=== PATIENT | female | born 1995 | race Caucasian/White ===

== ENCOUNTER 2016-12-24 12:31 | Emergency (ER) | payer BC ==
[2016-12-24 12:42] VITALS: BP 134/92
--- NOTE | 2016-12-24 14:04 | UC ---
FLU HPI - HPI Summary HPI Summary: ON SATURDAY HAD STOMACH UPSET AND DIARRHEA, FELT BETTER SATURDAY AND PART OF SATURDAY. YESTERDAY HAD FAIRLY SUDDEN ONSET OF COUGH CONGESTION BODY ACHES - History of Current Complaint Chief Complaint: UCRespiratory Stated Complaint: STOMACH CRAMPS,CONGEST Time Seen by Provider: 12/24/16 12:46 Hx Obtained From: Patient, Family/[employer] Hx Last Menstrual Period: 12/06/16 Onset/Duration: Sudden Onset, Lasting Hours Severity Currently: Moderate Severity Initially: Mild Associated Signs & Symptoms: Positive: F/C, Myalgia, Cough, Sore Throat, Nasal Congestion, Diarrhea Related Hx: Possible Flu/Infectious Exposure - Risk Factors Influenza Risk Factors: Negative - Allergy/Home Medications Allergies/Adverse Reactions: Allergies Allergy/AdvReac Type Severity Reaction Status Date / Time No Known Allergies Allergy Verified 12/24/16 12:43 Home Medications: Home Medications Omeprazole [Prilosec] 20 mg PO 12/24/16 [History] PMH/Surg Hx/FS Hx/Imm Hx Previously Healthy: Yes Endocrine History Of: Denies: Diabetes, Thyroid Disease Cardiovascular History Of: Denies: Cardiac Disorders, Hypertension Respiratory History Of: Denies: COPD, Asthma GI/ History Of: Reports: Ulcer - Surgical History Surgical History: Yes Surgery Procedure, Year, and Place: lap ly 2014. tonsilectomy 2012 - Family History Known Family History: Negative: Respiratory Disease - Social History Occupation: Employed Full-time Lives: With Family Alcohol Use: Rare Substance Use Type: None Smoking Status (MU): Never Smoked Tobacco - Immunization History Vaccination Up to Date: Yes Review of Systems Constitutional: Chills, Fatigue Skin: Negative ENT: Sore Throat, Nasal Discharge Respiratory: Cough Cardiovascular: Negative Gastrointestinal: Vomiting - RESOLVED, Diarrhea Genitourinary: Negative Motor: Negative Neurovascular: Negative Musculoskeletal: Negative Neurological: Negative Psychological: Negative All Other Systems Reviewed And Are Negative: Yes Physical Exam Triage Information Reviewed: Yes Appearance: No Pain Distress, Well-Nourished, Ill-Appearing - MILD, Obese Vital Signs: Initial Vital Signs Temp 98.2 F 12/24/16 12:36 Pulse 103 12/24/16 12:36 Resp 20 12/24/16 12:36 BP 134/92 12/24/16 12:36 Pulse Ox 100 12/24/16 12:36 Vital Signs Reviewed: Yes Eye Exam: Normal ENT Exam: Normal ENT: Positive: Normal ENT inspection, Hearing grossly normal, Pharynx normal, TMs normal Dental Exam: Normal Neck exam: Normal Neck: Positive: Supple, Nontender Respiratory Exam: Normal Respiratory: Positive: Chest non-tender, Lungs clear, Normal breath sounds, No respiratory distress Cardiovascular Exam: Normal Cardiovascular: Positive: RRR, No Murmur, Pulses Normal Abdominal Exam: Normal Abdomen Description: Positive: Nontender, No Organomegaly, Soft Musculoskeletal Exam: Normal Musculoskeletal: Positive: Strength Intact, ROM Intact Neurological Exam: Normal Psychological Exam: Normal Psychological: Positive: Normal Response To Family Skin Exam: Normal Flu Course/Dx - Differential Dx/Diagnosis Differential Diagnosis/HQI/PQRI: Influenza, Upper Respiratory Infection Provider Diagnoses: INFLUENZA B Discharge - Discharge Plan Condition: Stable Disposition: HOME Prescriptions: Oseltamivir CAP* [Tamiflu CAP*] 75 mg PO BID #10 cap Patient Education Materials: Influenza (ED) Forms: *Work Release Referrals: Smooth Zelaya NP [Primary Care Provider] - Leander Vee MD [Medical Doctor] -
== END 2016-12-24 13:46 | disposition home or self-care (01) ==
LOC: UCEAST 12:31
DX: J10.1 Influenza due to other identified influenza virus with other respiratory manifestations (principal); R03.0 Elevated blood-pressure reading, without diagnosis of hypertension; Z87.11 Personal history of peptic ulcer disease
CPT/HCPCS: 87502; 99212; G0463

== ENCOUNTER 2018-07-02 07:54 | Emergency (ER) | payer BC, OTHER ==
[2018-07-02 08:12] VITALS: BP 141/87
--- NOTE | 2018-07-02 08:26 | UC ---
UC General HPI - HPI Summary HPI Summary: This pt is a 22 y/o female presenting to [facility] c/o sore throat, cough, nasal congestion for the past 2 weeks. Pt additionally reports sinus pain, nasal discharge green in color, post nasal drip, body aches, and occasional fever. Denies nausea, vomiting, abd pain. She rates her sore throat 2/10 in severity. Denies any PMHx. - History of Current Complaint Chief Complaint: UCRespiratory Stated Complaint: COUGH HEADACHE Time Seen by Provider: 07/02/18 08:02 Hx Obtained From: Patient Hx Last Menstrual Period: bc, irrg, rare Onset/Duration: Lasting Weeks - 2, Still Present Timing: Constant Current Severity: Mild Pain Intensity: 2 Pain Location at: throat Character: sore Aggravating: nothing Alleviating: nothing Associated Signs & Symptoms: Positive: Cough, Fever, Other - POS: sinus pain, nasal congestion, nasal discharge, post nasal drip, body aches. Negative: Abdominal Pain, Diarrhea, Nausea, SOB, Vomiting - Allergy/Home Medications Allergies/Adverse Reactions: Allergies Allergy/AdvReac Type Severity Reaction Status Date / Time No Known Allergies Allergy Verified 07/02/18 08:05 PMH/Surg Hx/FS Hx/Imm Hx Other Endocrine History: DENIES: diabetes Other Cardiovascular History: DENIES: HTN - Surgical History Surgical History: Yes Surgery Procedure, Year, and Place: lap ly 2015. tonsilectomy 2012 - Family History Known Family History: Negative: Respiratory Disease - Social History Alcohol Use: Rare Substance Use Type: Marijuana Substance Use Comment - Amount & Last Used: rare Smoking Status (MU): Never Smoked Tobacco - Immunization History Vaccination Up to Date: Yes Review of Systems Constitutional: Fever Skin: Negative Eyes: Negative ENT: Sore Throat, Nasal Discharge, Sinus Congestion, Sinus Pain/Tenderness, Other - POS: post nasal drip Respiratory: Cough Cardiovascular: Negative Gastrointestinal: Negative Genitourinary: Negative Motor: Negative Neurovascular: Negative Musculoskeletal: Myalgia Neurological: Negative Psychological: Negative Is Patient Immunocompromised?: No All Other Systems Reviewed And Are Negative: Yes Physical Exam - Summary Physical Exam Summary: VITAL SIGNS: Reviewed. GENERAL: Patient is a well-developed and nourished female who is lying comfortable in the stretcher. Patient is not in any acute respiratory distress. HEAD AND FACE: Normocephalic. Positive sinus tenderness on maxillary sinus. Greenish discharge from both nostrils. Positive nasal congestion. EYES: PERRLA, EOMI x 2. EARS: Hearing grossly intact. MOUTH: Oropharynx within normal limits. NECK: Supple, trachea is midline, no adenopathy, no JVD, no carotid bruit. CHEST: Symmetric, no tenderness at palpation LUNGS: Clear to auscultation bilaterally. No wheezing or crackles. CVS: Regular rate and rhythm, S1 and S2 present, no murmurs or gallops appreciated. ABDOMEN: Soft, non-tender. Bowel sounds are normal. No abdominal abnormal pulsations. EXTREMITIES: Full ROM in all major joints, no edema, no cyanosis or clubbing. NEURO: Alert and oriented x 3. No acute neurological deficits. Speech is normal and follows commands. SKIN: Dry and warm Triage Information Reviewed: Yes Vital Signs: Initial Vital Signs Temp 98 F 07/02/18 08:06 Pulse 86 07/02/18 08:06 Resp 18 07/02/18 08:06 BP 141/87 07/02/18 08:06 Pulse Ox 98 07/02/18 08:06 Vital Signs Reviewed: Yes Course/Dx - Course Course Of Treatment: Pt is a 22 y/o female presenting to [facility] c/o sore throat, cough, nasal congestion for the past 2 weeks. Pt additionally reports sinus pain , nasal discharge green in color, post nasal drip, body aches, and occasional fever. Denies nausea, vomiting, abd pain. She rates her sore throat 2/10 in severity. Rapid strep is negative. Influenza A and B is negative. It seems that the patient has an acute sinusitis therefore the patient was given amoxicillin and discharged home with follow-up from PCP. Patient is hemodynamically stable alert and oriented 3. The patient was found to have increased blood pressure in UC. The patient will follow up with PCP for better control of BP. - Differential Dx - Multi-Symptom Provider Diagnoses: Acute sinusitis Discharge - Sign-Out/Discharge Documenting (check all that apply): Patient Departure - Discharge All imaging exams completed and their final reports reviewed: No Studies - Discharge Plan Condition: Stable Disposition: HOME Prescriptions: Amoxicillin PO (*) [Amoxicillin 875 MG (*)] 875 mg PO BID #20 tab Fluticasone NASAL SPRAY 50MCG* [Flonase NASAL SPRAY 50MCG*] 2 spray BOTH NARES DAILY #1 btl Patient Education Materials: Sinusitis (ED) Referrals: Leander Vee MD [Primary Care Provider] - Additional Instructions: Take medications as instructed and adhere to plan Take Acetaminophen or ibuprofen for pain or fever Increase your fluid intake Return to the or go to the emergency department if symptoms worsen Follow-up with primary care physician in next 2-3 days - Billing Disposition and Condition Condition: STABLE Disposition: Home - Attestation Statements Document Initiated by Scribe: Yes Documenting Scribe: Sonia Ridley Provider For Whom Romulo is Documenting (Include Credential): Jose Cantu MD Scribe Attestation: Sonia Joy, scribed for Jose Cantu MD on 07/02/18 at 0934. Scribe Documentation Reviewed: Yes Provider Attestation: The documentation as recorded by the scribeSonia accurately reflects the service I personally performed and the decisions made by me, Jose Cantu MD
== END 2018-07-02 08:48 | disposition home or self-care (01) ==
LOC: UCEAST 07:54
DX: J01.90 Acute sinusitis, unspecified (principal)
CPT/HCPCS: 87651; 99212; G0463

== ENCOUNTER → 2018-09-11 22:57 | Emergency (ER) | payer OTHER ==
[2018-09-11 23:02] VITALS: BP 131/91
== END | disposition left against medical advice (07) ==
LOC: ED 22:57
DX: R10.31 Right lower quadrant pain (principal); Z53.21 Procedure and treatment not carried out due to patient leaving prior to being seen by health care provider

== ENCOUNTER 2018-09-12 09:42 | Emergency (ER) | payer OTHER ==
[2018-09-12 09:52] VITALS: BP 147/99
--- NOTE | 2018-09-12 10:42 | UC ---
UC General HPI - HPI Summary HPI Summary: pleasant 23 yo female c/o progressive RLQ pain since Sun (today is Saturday). No fever / chills. Appetite fair. + nausea, no vomit. Uncomfortable pressure with bowel movement but not painful. No melena / brbr. No urinary sx - no freq , urg, blood / discoloration, dysuria. No rash. No sob / cp / palpitations. PMH / PSH - gallbladder sx, has control device. No other sign ros although has had a h/a this week. Went to the ED last evening for RLQ pain, but lwbs d/t wait time. - History of Current Complaint Chief Complaint: UCAbdominalPain Stated Complaint: R ABD PAIN Time Seen by Provider: 09/12/18 10:31 Hx Obtained From: Patient Hx Last Menstrual Period: 08/28/18 Pain Intensity: 8 - Allergy/Home Medications Allergies/Adverse Reactions: Allergies Allergy/AdvReac Type Severity Reaction Status Date / Time almond Allergy GI Upset Verified 09/12/18 09:53 carrot Allergy GI Upset Verified 09/12/18 09:53 hazelnut Allergy GI Upset Verified 09/12/18 09:53 soy Allergy GI Upset Verified 09/12/18 09:53 Home Medications: Home Medications NK [No Home Medications Reported] 09/12/18 [History Confirmed 09/12/18] PMH/Surg Hx/FS Hx/Imm Hx Previously Healthy: Yes - Surgical History Surgical History: Yes Surgery Procedure, Year, and Place: lap ly 2014. tonsilectomy 2012 - Family History Known Family History: Negative: Respiratory Disease - Social History Alcohol Use: Rare Substance Use Type: Marijuana Substance Use Comment - Amount & Last Used: rare Smoking Status (MU): Never Smoked Tobacco - Immunization History Vaccination Up to Date: Yes Review of Systems All Other Systems Reviewed And Are Negative: Yes Constitutional: Positive: Other - see hpi Skin: Positive: Negative Eyes: Positive: Negative ENT: Positive: Negative Respiratory: Positive: Negative Cardiovascular: Positive: Negative Gastrointestinal: Positive: Other - see hpi Motor: Positive: Negative Neurovascular: Positive: Negative Musculoskeletal: Positive: Negative Neurological: Positive: Negative - see hpi Psychological: Positive: Negative Is Patient Immunocompromised?: No Physical Exam Triage Information Reviewed: Yes Appearance: Well-Nourished - sitting up, conversing easily Looks uncomfortable, jen with examination, but NAD Vital Signs: Initial Vital Signs Temp 98 F 09/12/18 09:50 Pulse 81 09/12/18 09:50 Resp 18 09/12/18 09:50 BP 147/99 09/12/18 09:50 Pulse Ox 99 09/12/18 09:50 Vital Signs Reviewed: Yes Eye Exam: Normal ENT Exam: Normal Neck exam: Normal Neck: Positive: Supple Respiratory Exam: Normal Respiratory: Positive: Chest non-tender, Lungs clear, Normal breath sounds, No respiratory distress, No accessory muscle use Cardiovascular Exam: Normal Cardiovascular: Positive: RRR, No Murmur, Pulses Normal, Brisk Capillary Refill Abdominal Exam: Other - Tender R flank, Tender RLQ no rebound / guarding +BS present Pelvic Exam: Positive: Other - normal female genitalia. No external sores or lesions. Vaginal vault with yellow-white mucoid discharge. No CMT appreciated. Tender R pelvis and RLQ but without skye adnexal mass. Note, exam limited d/t habitus and exam table limitation. Musculoskeletal Exam: Normal - gait steady, able to move x 4 ext's Neurological Exam: Normal - grossly nonfocal Psychological Exam: Normal - conversing easily and appropriately. Skin Exam: Normal - no visible or reported rash. Nondiaphoretic. Course/Dx - Course Course Of Treatment: Reviewed urine dip, d/w pt. Will send urine culture. UCG neg. D/w pt recommendation to go to ED for further evaluation / tx. She would like pelvic examination however, to be done here. (see pelvic exam in pe notes) . Bp 149/99. Possibly pain related. But recommend recheck pcp within the next 2 weeks. Questions posed answered to the best of my ability. - Diagnoses Provider Diagnosis: Acute right lower quadrant pain Discharge - Sign-Out/Discharge Documenting (check all that apply): Patient Departure All imaging exams completed and their final reports reviewed: No Studies - Discharge Plan Condition: Stable Disposition: HOME Patient Education Materials: Acute Abdominal Pain (ED) Referrals: Leander Vee MD [Primary Care Provider] - Additional Instructions: Please go to the Emergency Department. Call 911 if problems en route. - Billing Disposition and Condition Condition: STABLE Disposition: Home
--- NOTE | 2018-09-13 15:16 | UC ---
- Progress Note Progress Note: 09/13/2018 Vaginal swabs negative for Gardnerella and Sissy Urine culture: no growth Pt was sent to the ER for further evaluation and treatment yesterday No change Stephany Michel PA-C Course/Dx - Diagnoses Provider Diagnoses: Acute right lower quadrant pain Discharge - Sign-Out/Discharge Documenting (check all that apply): Patient Departure - D/C home All imaging exams completed and their final reports reviewed: No Studies - Discharge Plan Condition: Stable Disposition: HOME Patient Education Materials: Acute Abdominal Pain (ED) Referrals: Leander eVe MD [Primary Care Provider] - Additional Instructions: Please go to the Emergency Department. Call 911 if problems en route. - Billing Disposition and Condition Condition: STABLE Disposition: Home
== END 2018-09-12 11:30 | disposition home or self-care (01) ==
LOC: UCEAST 09:42
DX: R10.31 Right lower quadrant pain (principal); Z32.02 Encounter for pregnancy test, result negative; Z90.49 Acquired absence of other specified parts of digestive tract
CPT/HCPCS: 81003; 84702; 87086; 87480; 87491; 87510; 87591; 99212; G0463

== ENCOUNTER → 2018-09-12 12:25 | Emergency (ER) | payer OTHER ==
--- NOTE | 2018-09-12 12:49 | ED ---
Abdominal Pain/Female - HPI Summary HPI Summary: The pt is 23 y/o female presenting to [facility] c/o RLQ pain for 1 week. The constant pain rated 7/10 in severity is described as a pressure. She notes decreased appetite and nausea but denies vomiting, dysuria, and constipation. She was seen yesterday night at [facility] for the same sx and discharged with a final dx of acute abd pain. She also went to Urgent care today morning and sent to [facility] for imaging. A test performed at Urgent Care returned negative. Home Medications Medication Instructions Recorded Confirmed Type NK [No Home Medications Reported] 09/12/18 09/12/18 History - History of Current Complaint Chief Complaint: EDAbdPain Stated Complaint: LOWER RIGHT ABD PAIN Time Seen by Provider: 09/12/18 12:37 Hx Obtained From: Patient Hx Last Menstrual Period: 08/28/18 Onset/Duration: Sudden Onset, Lasting Weeks - 1 week, Still Present Timing: Constant Severity Initially: Moderate Severity Currently: Moderate Pain Intensity: 7 Pain Scale Used: 0-10 Numeric Location: Discrete At: RLQ Radiates: No Aggravating Factor(s): Nothing Alleviating Factor(s): Nothing Associated Signs and Symptoms: Positive: Decreased Appetite, Nausea. Negative: Vomiting Allergies/Adverse Reactions: Allergies Allergy/AdvReac Type Severity Reaction Status Date / Time almond Allergy GI Upset Verified 09/12/18 09:53 carrot Allergy GI Upset Verified 09/12/18 09:53 hazelnut Allergy GI Upset Verified 09/12/18 09:53 soy Allergy GI Upset Verified 09/12/18 09:53 PMH/Surg Hx/FS Hx/Imm Hx Previously Healthy: No Endocrine/Hematology History: Denies: Hx Diabetes, Hx Thyroid Disease Cardiovascular History: Denies: Hx Hypertension Respiratory History: Reports: Hx Sleep Apnea - ? POSSIBLE- RELATED TO ENLARGED TONSILS Denies: Hx Asthma, Hx Chronic Obstructive Pulmonary Disease (COPD) GI History: Reports: Hx Ulcer Musculoskeletal History: Reports: Other Musculoskeletal History - RIGHT INTERCOSTAL MUSCLE PULLED- HAVING PT FOR Sensory History: Reports: Hx Contacts or Glasses - WILL WEAR GLASSES DAY OF SURGERY Denies: Hx Hearing Aid Opthamlomology History: Reports: Hx Contacts or Glasses - WILL WEAR GLASSES DAY OF SURGERY - Cancer History Cancer Type, Location and Year: None reported - Surgical History Surgery Procedure, Year, and Place: rosalia modi 2014. tonsilectomy 2013 Infectious Disease History: No Infectious Disease History: Denies: Hx Hepatitis, Hx Human Immunodeficiency Virus (HIV), Traveled Outside the [place] in Last 30 Days - Family History Known Family History: Positive: Unknown Family History: Pt is adopted. - Social History Occupation: Employed Full-time Lives: With Family Alcohol Use: Rare Substance Use Type: Reports: Marijuana Substance Use Comment - Amount & Last Used: rare Smoking Status (MU): Never Smoked Tobacco Review of Systems Gastrointestinal: Negative - Constipation , Other - Positive: Decreased appetite Positive: Abdominal Pain, Nausea. Negative: Vomiting Negative: dysuria All Other Systems Reviewed And Are Negative: Yes Physical Exam - Summary Physical Exam Summary: Appearance: The patient is well-nourished in no acute distress and in no acute pain. The patient is obese. Skin: The skin is warm and dry and skin color reflects adequate perfusion. HEENT: The head is normocephalic and atraumatic. The pupils are equal and reactive. The conjunctivae are clear and without drainage. Nares are patent and without drainage. Mouth reveals moist mucous membranes and the throat is without erythema and exudate. The external ears are intact. The ear canals are patent and without drainage. The tympanic membranes are intact. Neck: The neck is supple with full range of motion and non-tender. There are no carotid bruits. There is no neck vein distension. Respiratory: Chest is non-tender. Lungs are clear to auscultation and breath sounds are symmetrical and equal. Cardiovascular: Heart is regular rate and rhythm. There is no murmur or rub auscultated. There is no peripheral edema and pulses are symmetrical and equal. Abdomen: The abdomen is soft and mildly tender in the RLQ and RUQ . There are normal bowel sounds heard in all four quadrants and there is no organomegaly palpated. Musculoskeletal: There is no back tenderness noted. Extremities are non-tender with full range of motion. There is good capillary refill. There is no peripheral edema or calf tenderness elicited. Neurological: Patient is alert and oriented to person, place and time. The patient has symmetrical motor strength in all four extremities. Cranial nerves are grossly intact. Deep tendon reflexes are symmetrical and equal in all four extremities. Psychiatric: The patient has an appropriate affect and does not exhibit any anxiety or depression. Triage Information Reviewed: Yes Vital Signs On Initial Exam: Initial Vitals Temp Pulse Resp BP Pulse Ox 97.2 F 86 18 148/96 99 09/12/18 12:29 09/12/18 12:29 09/12/18 12:29 09/12/18 12:29 09/12/18 12:29 Vital Signs Reviewed: Yes Diagnostics - Vital Signs Vital Signs Temp Pulse Resp BP Pulse Ox 09/12/18 12:29 97.2 F 86 18 148/96 99 - Laboratory Result Diagrams: 09/12/18 12:57 09/12/18 12:57 Lab Statement: Any lab studies that have been ordered have been reviewed, and results considered in the medical decision making process. - CT Abd/Pel CT CT Interpretation Completed By: Radiologist - IMPRESSION: 1. NORMAL APPENDIX. 2. NO HYDRONEPHROSIS OR NEPHROLITHIASIS. 3. FATTY INFILTRATION OF THE LIVER. 4. NO ACUTE NONCONTRAST CT PATHOLOGY OF THE VISUALIZED ABDOMEN OR PELVIS. The ED physician reviewed this radiology report. - Ultrasound No standard instances Ultrasound Interpretation Completed By: Radiologist - TRANSVAGINAL PELVIC US IMPRESSION: Unremarkable pelvic ultrasound. The ED physician reviewed this radiology report. Re-Evaluation - Re-Evaluation First Eval Re-Evaluation Time: 15:22 Change: Improved - I discussed the imaging results and dispo plan with the pt. Abdominal Pain Fem Course/Dx - Course Course Of Treatment: Ms. Bae presented with about a week of right lower quadrant abdominal pain which she describes as dull. She's not had much appetite and been a little bit nauseated at times. She came to the emergency department last evening but left without being seen visit was busy. [facility] and they sent her over here. She is mildly tender in the right lower quadrant but nontoxic in appearance with stable vital signs. Labs showed a very slight leukocytosis in the 11 range. Pelvic ultrasound showed no pathology therefore a CT was obtained and was negative for appendicitis. I recommended close follow-up and reassured her that this did not seem to be a dangerous process at this time. - Diagnoses Provider Diagnoses: Abdominal pain Discharge - Sign-Out/Discharge Documenting (check all that apply): Patient Departure - Discharge Plan Condition: Stable Disposition: HOME Patient Education Materials: Acute Abdominal Pain (ED) Referrals: Leander Vee MD [Primary Care Provider] - Additional Instructions: Keep your Saturday appointment at [place] and follow up with Dr. Vee. Return to ED for any new or worsening symptoms - Billing Disposition and Condition Condition: STABLE Disposition: Home - Attestation Statements Document Initiated by Romulo: Yes Documenting Scribe: Nivia Demarco Provider For Whom Romulo is Documenting (Include Credential): Dr. James Loja MD Scribe Attestation: Nivia Joy scribed for Dr. James Loja MD on 09/12/18 at 1645. Scribe Documentation Reviewed: Yes Provider Attestation: The documentation as recorded by the Nivia warren accurately reflects the service I personally performed and the decisions made by me, Dr. James Loja MD Status of Scribe Document: Viewed
[2018-09-12 13:10] LABS: ABS Basophils 0.1 10^3/ul (0-0.2); ABS Eosinophils 0.2 10^3/ul (0-0.6); ABS Lymphocytes 2.5 10^3/ul (1.0-4.8); ABS Neutrophils 7.5 10^3/ul (1.5-7.7); ABS Nucleated RBC 0 10^3/ul; Eosinophil % 1.5 %; Hematocrit 43 % (35-47); Hemoglobin 14.4 g/dl (12.0-16.0); Lymphocyte % 22.1 %; Mean Corpuscular HGB Conc 34 g/dl (31-36); Mean Corpuscular Hemoglobin 31 pg (27-31); Mean Corpuscular Volume 92 fL (80-97); Mean Platelet Volume 7.3 fL (7.4-10.4); Nucleated Red Blood Cells % 0; Platelet Count 304 10^3/ul (150-450); Red Blood Count 4.66 10^6/ul (4.00-5.40); Red Cell Distribution Width 13 % (10.5-15); White Blood Count 11.2 10^3/ul (3.5-10.8)
[2018-09-12 13:19] LABS: INR 0.89 (0.77-1.02)
[2018-09-12 13:22] LABS: EGFR Non-African American 117.1 (>60)
[2018-09-12 15:44] VITALS: BP 140/90
== END | disposition home or self-care (01) ==
LOC: ED 12:25
DX: R10.31 Right lower quadrant pain (principal); R11.0 Nausea; R63.0 Anorexia
CPT/HCPCS: 36415; 74176; 76830; 80053; 83605; 83690; 83735; 84702; 85025; 85610; 85730; 86140; 99283

== ENCOUNTER 2019-03-25 18:50 | Emergency (ER) | payer OTHER ==
[2019-03-25 19:21] VITALS: BP 138/97
--- NOTE | 2019-03-25 20:15 | UC ---
Abdominal Pain Female HPI - HPI Summary HPI Summary: 23-year-old female comes in with a chief complaint of intermittent pelvic pain and epigastric pain. This been going on and off for several days. She's also had some spotting. Her last menstrual period was February 18, 2019. Typically she has her menses every 28 days and so it's late. She is trying to get so she is wondering if she is now. The pelvic pain when it happens does radiate to the middle of her low back. She denies any concerns of STI denies any abnormal vaginal discharge. She has been slightly constipated also. She tells me she does have a history of stomach ulcers and is not taking any antacid medicines at this time. She has had a cholecystectomy. No fevers or chills no dysuria. No vomiting. - History of Current Complaint Chief Complaint: UCAbdominalPain Stated Complaint: ABDOMINAL AND BACK PAIN Time Seen by Provider: 03/25/19 19:56 Hx Last Menstrual Period: 02/18/19 Pain Intensity: 8 Allergies/Adverse Reactions: Allergies Allergy/AdvReac Type Severity Reaction Status Date / Time almond Allergy GI Upset Verified 03/25/19 19:21 carrot Allergy GI Upset Verified 03/25/19 19:21 hazelnut Allergy GI Upset Verified 03/25/19 19:21 soy Allergy GI Upset Verified 03/25/19 19:21 PMH/Surg Hx/FS Hx/Imm Hx Previously Healthy: Yes - Surgical History Surgical History: Yes Surgery Procedure, Year, and Place: lap ly 2014. tonsilectomy 2012 - Family History Known Family History: Positive: Unknown, Non-Contributory Negative: Respiratory Disease Family History: Pt is adopted. - Social History Alcohol Use: Rare Substance Use Type: Marijuana Substance Use Comment - Amount & Last Used: rare Smoking Status (MU): Never Smoked Tobacco - Immunization History Vaccination Up to Date: Yes Review of Systems All Other Systems Reviewed And Are Negative: Yes Constitutional: Positive: Negative Skin: Positive: Negative Eyes: Positive: Negative ENT: Positive: Negative Respiratory: Positive: Negative Cardiovascular: Positive: Negative Gastrointestinal: Positive: Abdominal Pain Genitourinary: Positive: Negative Motor: Positive: Negative Neurovascular: Positive: Negative Musculoskeletal: Positive: Negative Neurological: Positive: Negative Psychological: Positive: Negative Is Patient Immunocompromised?: No Physical Exam Triage Information Reviewed: Yes Appearance: Well-Appearing, No Pain Distress, Well-Nourished Vital Signs: Initial Vital Signs Temp 97.2 F 03/25/19 19:08 Pulse 94 03/25/19 19:08 Resp 16 03/25/19 19:08 BP 138/97 03/25/19 19:08 Pulse Ox 97 03/25/19 19:08 Vital Signs Reviewed: Yes Eye Exam: Normal Eyes: Positive: Conjunctiva Clear Neck: Positive: Supple Respiratory: Positive: Lungs clear, Normal breath sounds, No respiratory distress Cardiovascular: Positive: RRR Abdomen Description: Positive: Soft, Other: - Minimal tenderness to palpation rlq and llq and epigastrium. No rebound. Bowel Sounds: Positive: Present Musculoskeletal Exam: Normal Musculoskeletal: Positive: Strength Intact, ROM Intact Neurological Exam: Normal Neurological: Positive: Alert, Muscle Tone Normal Psychological Exam: Normal Psychological: Positive: Age Appropriate Behavior Skin Exam: Normal Abd Pain Female Course/Dx - Course Course Of Treatment: On examination the patient has minimal tenderness to palpation in the right lower quadrant left lower quadrant and epigastrium. There is no rebound. Patient's in no acute distress in the clinic. We discussed evaluation of pelvic pain. At this time the patient's main complaint is she wonders if she is . And the clinic we ran a urine which was negative. No dysuria or Sx of a UTI therefore, no ABx at this time. Patient would like blood work done and blood work has been drawn for CBC CMP and serum hCG. We discussed going to the emergency department for further evaluation of pelvic pain patient prefers to not do that at this time. We discussed that if she got worse her condition did not improve she should go the emergency department. - Differential Dx/Diagnosis Provider Diagnosis: Pelvic pain, Epigastric pain, Menstrual period late Discharge - Sign-Out/Discharge Documenting (check all that apply): Patient Departure All imaging exams completed and their final reports reviewed: No Studies - Discharge Plan Condition: Stable Disposition: HOME Patient Education Materials: Pelvic Pain in Women (ED), Epigastric Pain (ED) Referrals: Leander Vee MD [Primary Care Provider] - Additional Instructions: FOLLOW UP WITH YOUR DOCTOR IF NOT COMPLETELY IMPROVED. GO TO THE EMERGENCY DEPARTMENT IF YOUR CONDITION DOES NOT IMPROVE OR WORSENS; PAIN, FEVER, YOU FEEL ILL OR ANY QUESTIONS OR CONCERNS. - Billing Disposition and Condition Condition: STABLE Disposition: Home
[2019-03-26 12:01] LABS: ABS Basophils 0.1 10^3/ul (0-0.2); ABS Eosinophils 0.2 10^3/ul (0-0.6); ABS Monocytes 0.9 10^3/ul (0-0.8); ABS Neutrophils 8.8 10^3/ul (1.5-7.7); Eosinophil % 1.7 %; Hematocrit 42 % (35-47); Lymphocyte % 22.9 %; Mean Corpuscular HGB Conc 34 g/dL (31-36); Mean Corpuscular Hemoglobin 31 pg (27-31); Mean Corpuscular Volume 92 fL (80-97); Mean Platelet Volume 8.3 fL (7.4-10.4); Platelet Count 309 10^3/uL (150-450); Red Blood Count 4.52 10^6 /uL (3.70-4.87); Red Cell Distribution Width 13 % (10-15)
[2019-03-26 12:06] LABS: Albumin 4.4 g/dL (3.2-5.2); Anion Gap 6 mmol/L (2-11); CO2 Carbon Dioxide 27 mmol/L (22-32); Calcium 9.7 mg/dL (8.6-10.3); Chloride 103 mmol/L (101-111); Potassium 4.1 mmol/L (3.5-5.0); Sodium 136 mmol/L (135-145)
[2019-03-26 12:12] LABS: ALT 25 U/L (7-52); AST 18 U/L (13-39); Albumin/Globulin Ratio 1.4 (1-3); Alkaline Phosphatase 61 U/L (34-104); BUN/Creatinine Ratio 25.4 (8-20); Blood Urea Nitrogen 17 mg/dL (6-24); EGFR Non-African American 109.1 (>60); Globulin 3.1 g/dL (2-4); Glucose 88 mg/dL (70-100); Total Protein 7.5 g/dL (6.4-8.9)
[2019-03-26 12:35] LABS: HCG Pregnancy < 0.60 mIU/mL
--- NOTE | 2019-03-26 15:08 | UC ---
- Progress Note Progress Note: mildly elevated white count uncertain of significance follow up PCP Course/Dx - Diagnoses Provider Diagnoses: Pelvic pain, Epigastric pain, Menstrual period late Discharge - Sign-Out/Discharge Documenting (check all that apply): Post-Discharge Follow Up All imaging exams completed and their final reports reviewed: No Studies - Discharge Plan Condition: Stable Disposition: HOME Patient Education Materials: Pelvic Pain in Women (ED), Epigastric Pain (ED) Referrals: Leander Vee MD [Primary Care Provider] - Additional Instructions: FOLLOW UP WITH YOUR DOCTOR IF NOT COMPLETELY IMPROVED. GO TO THE EMERGENCY DEPARTMENT IF YOUR CONDITION DOES NOT IMPROVE OR WORSENS; PAIN, FEVER, YOU FEEL ILL OR ANY QUESTIONS OR CONCERNS. - Billing Disposition and Condition Condition: STABLE Disposition: Home
--- NOTE | 2019-03-27 16:54 | UC ---
- Progress Note Progress Note: urine culture neg final n no changes ljj 03/27/19 Course/Dx - Diagnoses Provider Diagnoses: Pelvic pain, Epigastric pain, Menstrual period late Discharge - Sign-Out/Discharge Documenting (check all that apply): Post-Discharge Follow Up All imaging exams completed and their final reports reviewed: No Studies - Discharge Plan Condition: Stable Disposition: HOME Patient Education Materials: Pelvic Pain in Women (ED), Epigastric Pain (ED) Referrals: Leander Vee MD [Primary Care Provider] - Additional Instructions: FOLLOW UP WITH YOUR DOCTOR IF NOT COMPLETELY IMPROVED. GO TO THE EMERGENCY DEPARTMENT IF YOUR CONDITION DOES NOT IMPROVE OR WORSENS; PAIN, FEVER, YOU FEEL ILL OR ANY QUESTIONS OR CONCERNS. - Billing Disposition and Condition Condition: STABLE Disposition: Home
== END 2019-03-25 20:40 | disposition home or self-care (01) ==
LOC: UCEAST 18:50
DX: R10.2 Pelvic and perineal pain (principal); R10.13 Epigastric pain; N92.5 Other specified irregular menstruation
CPT/HCPCS: 36415; 80053; 81003; 84702; 85025; 87086; 99211; G0463

== ENCOUNTER 2019-07-27 07:52 | Emergency (ER) | payer OTHER ==
[2019-07-27 08:01] VITALS: BP 140/89
--- NOTE | 2019-07-27 08:09 | UC ---
Shoulder Pain HPI - HPI Summary HPI Summary: Is a 23-year-old female presenting with right shoulder pain since last night. States she played in a softball tournament yesterday when she noticed her shoulder began bother her. She noticed this pain one week prior and took the week off thinking it would go away. She states after her adrenaline wore off yesterday she started feeling increasing sharp pain that shoots down her arm. Nothing makes the pain better. States any kind of movement makes it worse. Patient states she is concerned for a rotator cuff tear. - History of Current Complaint Chief Complaint: UCUpperExtremity Stated Complaint: SHOULDER INJURY Hx Obtained From: Patient Hx Last Menstrual Period: 1-2 weeks ago Pain Intensity: 9 - Allergies/Home Medications Allergies/Adverse Reactions: Allergies Allergy/AdvReac Type Severity Reaction Status Date / Time almond Allergy GI Upset Verified 07/27/19 08:01 carrot Allergy GI Upset Verified 07/27/19 08:01 hazelnut Allergy GI Upset Verified 07/27/19 08:01 soy Allergy GI Upset Verified 07/27/19 08:01 PMH/Surg Hx/FS Hx/Imm Hx Previously Healthy: Yes - Surgical History Surgical History: Yes Surgery Procedure, Year, and Place: lap ly 2015. tonsilectomy 2013 - Family History Known Family History: Positive: Unknown, Non-Contributory Negative: Respiratory Disease Family History: Pt is adopted. - Social History Alcohol Use: Rare Substance Use Type: None Substance Use Comment - Amount & Last Used: rare Smoking Status (MU): Never Smoked Tobacco - Immunization History Vaccination Up to Date: Yes Review of Systems All Other Systems Reviewed And Are Negative: No Constitutional: Positive: Negative Skin: Negative: Bruising Respiratory: Positive: Negative Cardiovascular: Positive: Negative Gastrointestinal: Positive: Negative Neurovascular: Negative: Decreased Sensation Musculoskeletal: Positive: Arthralgia. Negative: Edema Neurological: Negative: Weakness, Paresthesia, Numbness Physical Exam Triage Information Reviewed: Yes Appearance: Well-Appearing, No Pain Distress, Well-Nourished Vital Signs: Initial Vital Signs Temp 97.4 F 07/27/19 07:55 Pulse 86 07/27/19 07:55 Resp 16 07/27/19 07:55 BP 140/89 07/27/19 07:55 Pulse Ox 98 07/27/19 07:55 Vital Signs Reviewed: Yes Eyes: Positive: Conjunctiva Clear ENT: Positive: Hearing grossly normal Neck: Positive: Supple Respiratory Exam: Normal Respiratory: Positive: Lungs clear, Normal breath sounds, No respiratory distress Cardiovascular Exam: Normal Cardiovascular: Positive: RRR, Pulses Normal, Brisk Capillary Refill Musculoskeletal: Positive: Strength Intact, No Edema, ROM Limited @ - internal and external rotation of right shoulder. Neurological Exam: Other - Sensation grossly intact Neurological: Positive: Alert Psychological: Positive: Age Appropriate Behavior Skin Exam: Normal Diagnostics - Radiology right shoulder Summary of Radiographic Findings: IMPRESSION: NO ACUTE OSSEOUS INJURY. IF SYMPTOMS PERSIST, RECOMMEND REPEAT IMAGING. Shoulder Course/Dx - Course Course Of Treatment: Discussed negative x-ray results with the patient. Directed her to follow-up with orthopedics if her pain persists or she is concerned for rotator cuff injury. Instructed her to continue symptomatic treatment including use of sling and shoulder exercises. Patient voiced understanding and agreed to the treatment plan. - Differential Dx/Diagnosis Provider Diagnosis: Shoulder pain, right Discharge ED - Sign-Out/Discharge Documenting (check all that apply): Patient Departure All imaging exams completed and their final reports reviewed: Yes - Discharge Plan Condition: Stable Disposition: HOME Patient Education Materials: Shoulder Separation Exercises (GEN), Shoulder Pain (ED) Forms: *Work Release Referrals: Leander Vee MD [Primary Care Provider] - If Needed Saulo Dumont MD [Medical Doctor] - If Needed Additional Instructions: As discussed, the xrays of the shoulder did not show any fractures. The joint spaces are also intact. Rest and use ice and the arm sling to help relieve pain. You may also use over the counter pain medications as directed for relief of pain. It is important that you keep your arm mobile. Perform the shoulder exercises provided to you as tolerated once or twice daily. Follow up with your PCP orthopedics as listed below. Return or go to the emergency room if pain worsens, the arm becomes cold and numb, or you are unable to move your arm. - Billing Disposition and Condition Condition: STABLE Disposition: Home
[2019-07-27] MEDS ORDERED: Ibuprofen TAB* 600 MG PO ONE (08:10)
== END 2019-07-27 09:19 | disposition home or self-care (01) ==
LOC: UCEAST 07:52
DX: M25.511 Pain in right shoulder (principal); Z91.018 Allergy to other foods
CPT/HCPCS: 99213; A9270-GY; G0463

== ENCOUNTER 2019-10-08 11:08 | Emergency (ER) | payer OTHER ==
--- NOTE | 2019-10-08 13:41 | UC ---
Abdominal Pain Female HPI - HPI Summary HPI Summary: 24-year-old female presents with 3-4 day history of right lower quadrant pain. States pain is constant and dull. Nonradiating. Complains of nausea especially after eating. States she has noted some bruising over the right lower abdomen which disappears when she lays down. Denies fever, chills, vomiting, diarrhea, dysuria, frequency, urgency, hematuria, or vaginal discharge. - History of Current Complaint Chief Complaint: UCAbdominalPain Stated Complaint: SIDE PAIN Time Seen by Provider: 10/08/19 13:01 Hx Obtained From: Patient Hx Last Menstrual Period: 09/10/19 Pain Intensity: 8 Allergies/Adverse Reactions: Allergies Allergy/AdvReac Type Severity Reaction Status Date / Time almond Allergy GI Upset Verified 10/08/19 11:50 carrot Allergy GI Upset Verified 10/08/19 11:50 hazelnut Allergy GI Upset Verified 10/08/19 11:50 soy Allergy GI Upset Verified 10/08/19 11:50 PMH/Surg Hx/FS Hx/Imm Hx Previously Healthy: Yes - Denies significant PMH - Surgical History Surgical History: Yes Surgery Procedure, Year, and Place: lap ly 2014. tonsilectomy 2012 - Family History Known Family History: Positive: Unknown, Non-Contributory Negative: Respiratory Disease Family History: Pt is adopted. - Social History Occupation: Employed Full-time Lives: With Family Alcohol Use: Rare Substance Use Type: None Substance Use Comment - Amount & Last Used: rare Smoking Status (MU): Never Smoked Tobacco - Immunization History Vaccination Up to Date: Yes Review of Systems All Other Systems Reviewed And Are Negative: Yes Constitutional: Negative: Fever, Chills Skin: Positive: Bruising ENT: Positive: Negative Respiratory: Positive: Negative Cardiovascular: Positive: Negative Gastrointestinal: Positive: Abdominal Pain, Nausea. Negative: Vomiting, Diarrhea Genitourinary: Negative: Dysuria, Hematuria, Frequency, Urgency, Vaginal/Penile Itching, Vaginal/Penile Discharge, Abnormal Bleeding Musculoskeletal: Positive: Negative Neurological: Positive: Negative Is Patient Immunocompromised?: No Physical Exam - Summary Physical Exam Summary: GENERAL APPEARANCE: Alert and cooperative obese adult female who appears to be in no acute distress. EYES: Conjunctiva clear. No drainage. EARS: External auditory canals and tympanic membranes clear, hearing grossly intact. NOSE: No nasal discharge. THROAT: Pharynx normal. Tonsils surgically absent. Uvula midline. NECK: Neck supple, non-tender without lymphadenopathy. CARDIAC: Normal S1 and S2. No S3, S4 or murmurs. Rhythm is regular. There is no peripheral edema, cyanosis or pallor. Extremities are warm and well perfused. Capillary refill is less than 2 seconds. Peripheral pulses intact. LUNGS: Clear to auscultation without rales, rhonchi, wheezing or diminished breath sounds. ABDOMEN: Positive bowel sounds. Soft, nondistended. Tenderness of the RLQ without guarding or rebound. No masses or hepatosplenomegally. No ecchymosis noted. MUSKULOSKELETAL: ROM intact to all extremities. No joint erythema or tenderness. Normal muscular development. Normal gait. SKIN: Skin normal color, texture and turgor with no lesions or eruptions. Triage Information Reviewed: Yes Vital Signs: Initial Vital Signs Temp 98.2 F 10/08/19 11:46 Pulse 96 10/08/19 11:46 Resp 18 10/08/19 11:46 BP 143/96 10/08/19 11:46 Pulse Ox 100 10/08/19 11:46 Vital Signs Reviewed: Yes Abd Pain Female Course/Dx - Course Course Of Treatment: 24-year-old female presents with 3-4 day history of right lower quadrant pain. States pain is constant and dull. Nonradiating. Complains of nausea especially after eating. States she has noted some bruising over the right lower abdomen which disappears when she lays down. Denies fever, chills, vomiting, diarrhea, dysuria, frequency, urgency, hematuria, or vaginal discharge. Afebrile. Hypertensive otherwise vital signs stable. Patient had soft nondistended abdomen, tenderness over the right lower quadrant without guarding or rebound, and otherwise unremarkable exam. I discussed with the patient that with her persistent right lower quadrant pain I cannot fully rule out the possibility of appendicitis at this time and I'm recommending that she go to the emergency room for further evaluation. Patient is agreeable to this and elects to transport via private vehicle with her sister driving. - Differential Dx/Diagnosis Differential Diagnosis: Appendicitis, Constipation, Ovarian Cyst, , Renal Colic, Urinary Tract Infection Provider Diagnosis: RLQ abdominal pain Discharge ED - Sign-Out/Discharge Documenting (check all that apply): Patient Departure All imaging exams completed and their final reports reviewed: No Studies - Discharge Plan Condition: Stable Disposition: HOME Referrals: Leander Vee MD [Primary Care Provider] - Additional Instructions: With your abdominal pain in the right lower quadrant I cannot rule out the possibility of appendicitis therefore I am recommending that you go to the emergency room for further evaluation. Go directly to the emergency room from here. Do not eat or drink anything until you have been evaluated. - Billing Disposition and Condition Condition: STABLE Disposition: Home
[2019-10-08 14:13] VITALS: BP 138/94
== END 2019-10-08 14:04 | disposition home or self-care (01) ==
LOC: UCEAST 11:08
DX: R10.31 Right lower quadrant pain (principal); R11.0 Nausea; Z91.018 Allergy to other foods
CPT/HCPCS: 81003; 84702; 99212; G0463

== ENCOUNTER 2022-03-24 22:27 | Inpatient (IN) ==
[2022-03-24] MEDS ORDERED: Charcoal ACTIVATED 25 GM/120 ML BTL PO ONE (23:12)
[2022-03-24] MEDS ORDERED: Lactated Ringers 1000 ml BAG 1,000 ML IV ONE (23:57)
[2022-03-25 00:49] LABS: ABS Monocytes 0.4 10^3/ul (0-0.8); ABS Neutrophils 7.5 10^3/ul (1.5-7.7); Eosinophil % 0.1 %; Hematocrit 37 % (35-47); Hemoglobin 12.2 g/dL (12.0-16.0); Lymphocyte % 11.3 %; Mean Corpuscular HGB Conc 33 g/dL (31-36); Mean Corpuscular Hemoglobin 29 pg (27-31); Mean Corpuscular Volume 88 fL (80-97); Mean Platelet Volume 8.7 fL (7.4-10.4); Nucleated Red Blood Cells % 0.1; Platelet Count 348 10^3/uL (150-450); Red Blood Count 4.14 10^6 /uL (3.70-4.87); Red Cell Distribution Width 14 % (10-15)
[2022-03-25 00:51] LABS: ALT 69 U/L (7-52); Acetaminophen < 15 mcg/mL; Albumin 4.5 g/dL (3.2-5.2); Albumin/Globulin Ratio 1.3 (1-3); Alcohol, S < 13 mg/dL (<13); Alkaline Phosphatase 42 U/L (35-149); Blood Urea Nitrogen 15 mg/dL (6-24); CO2 Carbon Dioxide 22 mmol/L (22-32); Calcium 8.9 mg/dL (8.6-10.3); Chloride 102 mmol/L (101-111); Globulin 3.5 g/dL (2-4); Glucose 107 mg/dL (70-100); Salicylate < 2.50 mg/dL (<30); Sodium 134 mmol/L (135-145); eGFR CKD-EPI 124.5 (>60)
[2022-03-25 00:52] LABS: Anion Gap 10 mmol/L (2-11)
[2022-03-25 01:05] LABS: TSH Ultra Thyroid Stim Horm 0.36 mcIU/mL (0.34-5.60)
[2022-03-25] MEDS ORDERED: Magnesium Sulfate 2 gm BAG 2 GM/50 ML BAG IVPB ONE (01:19)
[2022-03-25 01:44] LABS: Magnesium 2.1 mg/dL (1.9-2.7); Potassium Redraw 3.2 mmol/L (3.5-5.0)
[2022-03-25] MEDS ORDERED: Lorazepam PYXIS KEY PRN ×2 (02:19→02:32)
[2022-03-25] MEDS ORDERED: LORazepam 2 mg VIAL 1 ml IV PUSH ONE (02:19)
[2022-03-25] MEDS ORDERED: Potassium Chloride LIQUID 20 MEQ/15 ML LIQUID PO ONE (02:30)
[2022-03-25] MEDS ORDERED: LORazepam 2 mg VIAL 1 ml IV PUSH PRN (03:00)
[2022-03-25 03:14] LABS: Urine Appearance Cloudy; Urine Bilirubin Negative (Negative); Urine Blood 2+ (Negative); Urine Color Yellow; Urine Glucose Negative (Negative); Urine Ketones Negative (Negative); Urine Nitrite Negative (Negative); Urine Protein Negative (Negative); Urine Specific Gravity 1.018 (1.002-1.030); Urine Urobilinogen Negative (Negative)
[2022-03-25 03:17] LABS: Urine Bacteria Absent (Absent); Urine Red Blood Cell Trace(0-2/hpf) (Absent); Urine Squamous Epithelial Cell Present (Absent); Urine White Blood Cell 3+(>20/hpf) (Absent)
[2022-03-25 03:36] LABS: Urine Benzodiazepine Screen None Detected (None Detect); Urine Buprenorphine Screen None Detected (None Detect); Urine Cannabinoids Screen None Detected (None Detect); Urine Fentanyl Screen None Detected (None Detect); Urine Hydrocodone Screen None Detected (None Detect); Urine Opiates Screen None Detected (None Detect)
[2022-03-25 08:02] LABS: INR 1.1 (0.86-1.15)
[2022-03-25 08:42] LABS: Calcium 8.5 mg/dL (8.6-10.3); Magnesium 2.6 mg/dL (1.9-2.7); Potassium 3.4 mmol/L (3.5-5.0); eGFR CKD-EPI 126.4 (>60)
[2022-03-26 06:57] LABS: ABS Monocytes 0.4 10^3/ul (0-0.8); ABS Neutrophils 2.4 10^3/ul (1.5-7.7); Eosinophil % 0.7 %; Hematocrit 36 % (35-47); Hemoglobin 12.3 g/dL (12.0-16.0); Mean Corpuscular HGB Conc 34 g/dL (31-36); Mean Corpuscular Hemoglobin 31 pg (27-31); Mean Corpuscular Volume 90 fL (80-97); Mean Platelet Volume 7.1 fL (7.4-10.4); Nucleated Red Blood Cells % 0.1; Platelet Count 253 10^3/uL (150-450); Red Blood Count 3.99 10^6 /uL (3.70-4.87); Red Cell Distribution Width 14 % (10-15); White Blood Count 4.9 10^3/uL (3.5-10.8)
[2022-03-26 07:30] LABS: Calcium 9.2 mg/dL (8.6-10.3); Magnesium 2.5 mg/dL (1.9-2.7); Potassium 3.8 mmol/L (3.5-5.0); eGFR CKD-EPI 118.2 (>60)
[2022-03-27] MEDS ORDERED: Al Hydrox/Mg Hydrox/Simet LIQ 30 ML UDC PO PRN (09:49)
[2022-03-28 08:38] LABS: HDL Cholesterol 41.8 mg/dL
[2022-03-28] MEDS: Vitamin THERAPEUTIC TAB PO SCH ×2 (11:57→14:02)
[2022-03-29] MEDS: Vitamin THERAPEUTIC TAB PO SCH (11:31)
[2022-03-30] MEDS: Vitamin THERAPEUTIC TAB PO SCH (11:32)
[2022-03-31] MEDS: Vitamin THERAPEUTIC TAB PO SCH (08:03)
[2022-04-01] MEDS: Vitamin THERAPEUTIC TAB PO SCH (08:58)
[2022-04-02 09:41] VITALS: BP 115/77
[2022-04-02] MEDS: Vitamin THERAPEUTIC TAB PO SCH (12:10)
== END 2022-04-02 14:36 | disposition home or self-care (01) | DRG 753 ==
LOC: ED 22:27 → EDHOLD 22:27 → SUATTDRO 03-25 02:18 → EDHOLD 03-25 02:33 → MEDTELE 03-25 08:00
PROVIDERS: ADMIT Internal Medicine; ATTEND Student in an Organized Health Care Education/Training Program